=== PATIENT | female | born 1960 | race Caucasian/White ===

== ENCOUNTER → 2021-05-17 | Outpatient (CLI) | payer MEDICARE, OTHER ==
[~2021-05-17] MED LIST: CITALOPRAM HBR10 MG PO; CYMBALTA 30 MG30 MG PO; IBUPROFEN800 MG PO; NARATRIPTAN2.5 MG PO; PROTONIX 40 MG40 M1 PO; SYNTHROID 125125 MCG PO; TEGRETOL200 MG PO; TYLENOL 325MG325 MG PO; VITAMIN D50000 UNIT PO
== END ==
LOC: KOH-I 15:25
DX: S82.831D Other fracture of upper and lower end of right fibula, subsequent encounter for closed fracture with routine healing (principal); X58.XXXD Exposure to other specified factors, subsequent encounter
CPT/HCPCS: 73610

== ENCOUNTER → 2021-06-05 | Outpatient (CLI) | payer MEDICARE, OTHER | LOC: KOH-I 12:36 | DX: S82.891D Other fracture of right lower leg, subsequent encounter for closed fracture with routine healing (principal); X58.XXXD Exposure to other specified factors, subsequent encounter | CPT/HCPCS: 73610 ==